=== PATIENT | male | born 1945 | race Caucasian/White ===

== ENCOUNTER 2018-11-03 13:33 | Inpatient (IN) | payer MEDICARE, OTHER ==
[~2018-11-03] VITALS: Ht 190.5 cm; Wt 103.8 kg
[~2018-11-03 13:33] MED LIST: ALLOPURINOL300 MG PO; AMBIEN10 MG PO; AMBIEN5 MG PO; ASPIRIN 32325 MG/TAB PO; ATOXIMETIN-B1 CAP PO; Beta Carotene; CO ENZYME Q-1050 MG PO; COREG 6.256.25 MG/TA PO; Echinacea; FISH OIL1 IU PO; FLOMAX 0.40.4 MG/CAP PO; Ginko Biloba; Glucosamine; HCTZ PO; HYZAAR 50-12.1 UDTAB PO; LORTAB 7.5/5001 TAB PO; LOVASTATIN10 MG PO; METOPROLOL1 MG/ML PO; MEVACOR40 MG PO; MSM; NAPROSYN 2250 MG/TAB PO; NAPROXEN250 MG PO; NORTRIPTYLINE10 MG PO; PERCOCET 325 MG1 TA4 PO; POTASSIUM GLUCO; ST JOHN S WORT; Saw Palmetto; VERAPAMIL PO; Vitamin C; ZOFRAN 4MG T4 MG/TAB PO; ZOFRAN4 MG PO
[2018-11-03 14:39] LABS: BASO % 0.3 % (0.0-2.0); EOS # 0.1 (0.0-0.7); EOS % 1.9 % (0-4.0); GRAN # 4.2 (1.4-6.5); GRAN % 60.8 % (42.2-75.2); HEMATOCRIT 38.6 % (42.0-52.0); HEMOGLOBIN 14.2 g/dl (13.5-18.0); LYMPH % 29.9 % (20.0-51.0); MEAN CELL VOLUME 89 fl (80.0-100.0); MEAN CORPUSCULAR HEMOGLOBIN 33 pg (27.0-31.0); MEAN CORPUSCULAR HGB CONC 37 g/dl (33.0-37.0); MEAN PLATELET VOLUME 8.9 fl (7.4-10.4); MONO # 0.5 (0.1-0.6); MONO % 6.7 % (1.7-9.3); PLATELET COUNT 216 K/mm3 (130-400); RED BLOOD COUNT 4.33 M/mm3 (4.20-5.60)
[2018-11-03 14:47] LABS: INR 1.2 (0.8-3.0); PROTHROMBIN TIME 13.1 SECONDS (9.7-12.8)
[2018-11-03 14:49] LABS: ALBUMIN 4.3 gm/dL (3.5-5.0); BILIRUBIN,TOTAL 1.1 mg/dL (0.0-1.0); CALCIUM 9.2 mg/dL (8.4-10.2); CREATININE, serum 1.37 mg/dL (0.66-1.25); POTASSIUM 4.1 mmol/L (3.4-5.0); TOTAL PROTEIN 7.2 gm/dL (6.4-8.2)
[2018-11-03] MEDS ORDERED: NORCO 325 MG-51 TAB PO (17:22)
[2018-11-03] MEDS ORDERED: FLOMAX 0.40.4 MG/CAP PO (17:22)
[2018-11-03] MEDS ORDERED: COZAAR 25MG25 MG/TAB PO (17:23)
[2018-11-03] MEDS ORDERED: PROPECIA1 MG PO (17:23)
[2018-11-03] MEDS ORDERED: ZYLOPRIM 100MG100 MG PO (17:23)
[2018-11-03] MEDS ORDERED: MEVACOR10 MG PO (17:24)
[2018-11-03] MEDS ORDERED: COREG 3.123.125 MG/T PO (17:24)
[2018-11-03] MEDS ORDERED: NEURONTIN400 MG/CAP PO (17:24)
[2018-11-03] MEDS ORDERED: AMITIZA 8MCG8 MCG PO (17:25)
[2018-11-03 19:39] VITALS: BP 151/75; PULSE 79; TEMP 98.3
[2018-11-03 19:40] VITALS: BP 151/75; PULSE 79; TEMP 98.3
[2018-11-04] VITALS (14 sets, daily range): BP systolic 123–169; BP diastolic 58–86; PULSE 78–95; TEMP 97.2–100.1
[2018-11-04 09:03] LABS: BASO % 0.4 % (0.0-2.0); EOS # 0.2 (0.0-0.7); EOS % 1.6 % (0-4.0); GRAN # 7.9 (1.4-6.5); GRAN % 75.8 % (42.2-75.2); HEMATOCRIT 38.4 % (42.0-52.0); HEMOGLOBIN 13.9 g/dl (13.5-18.0); LYMPH # 1.3 (1.2-3.4); LYMPH % 12.8 % (20.0-51.0); MEAN CELL VOLUME 89 fl (80.0-100.0); MEAN CORPUSCULAR HEMOGLOBIN 32 pg (27.0-31.0); MEAN CORPUSCULAR HGB CONC 36 g/dl (33.0-37.0); MEAN PLATELET VOLUME 8.9 fl (7.4-10.4); MONO % 9.1 % (1.7-9.3); PLATELET COUNT 188 K/mm3 (130-400); REDCELL DISTRIBUTION WIDTH-CV 13.1 % (11.5-14.5)
[2018-11-04 09:16] LABS: ALBUMIN 4.1 gm/dL (3.5-5.0); BILIRUBIN,TOTAL 1.7 mg/dL (0.0-1.0); CALCIUM 8.8 mg/dL (8.4-10.2); CREATININE, serum 1.11 mg/dL (0.66-1.25); POTASSIUM 3.9 mmol/L (3.4-5.0); TOTAL PROTEIN 7.1 gm/dL (6.4-8.2)
[2018-11-04] MEDS ORDERED: HYZAAR 50-12.1 UDTAB PO (12:08)
[2018-11-05 00:14] VITALS: BP 140/72; PULSE 76; TEMP 98.1
[2018-11-05 03:38] VITALS: BP 153/81; PULSE 77; TEMP 98
[2018-11-05 08:01] VITALS: BP 146/76; PULSE 75; TEMP 97.5
[2018-11-05 08:51] LABS: BASO % 0.1 % (0.0-2.0); GRAN # 10.7 (1.4-6.5); GRAN % 86.7 % (42.2-75.2); HEMOGLOBIN 12.8 g/dl (13.5-18.0); LYMPH # 0.9 (1.2-3.4); LYMPH % 7.6 % (20.0-51.0); MEAN CELL VOLUME 90 fl (80.0-100.0); MEAN CORPUSCULAR HEMOGLOBIN 33 pg (27.0-31.0); MEAN CORPUSCULAR HGB CONC 36 g/dl (33.0-37.0); MEAN PLATELET VOLUME 9.2 fl (7.4-10.4); MONO # 0.6 (0.1-0.6); MONO % 5.1 % (1.7-9.3); PLATELET COUNT 192 K/mm3 (130-400); RED BLOOD COUNT 3.94 M/mm3 (4.20-5.60); REDCELL DISTRIBUTION WIDTH-CV 12.8 % (11.5-14.5)
[2018-11-05 08:59] LABS: HEMATOCRIT 35.3 % (42.0-52.0)
[2018-11-05 09:01] LABS: ALBUMIN 3.6 gm/dL (3.5-5.0); BILIRUBIN,TOTAL 0.8 mg/dL (0.0-1.0); CALCIUM 8.4 mg/dL (8.4-10.2); CREATININE, serum 1.05 mg/dL (0.66-1.25); POTASSIUM 3.8 mmol/L (3.4-5.0); TOTAL PROTEIN 6.4 gm/dL (6.4-8.2)
[2018-11-05 11:22] VITALS: BP 120/89; PULSE 74; TEMP 98.2
[2018-11-05 16:43] VITALS: BP 131/65; PULSE 78; TEMP 98.2
[2018-11-05 19:30] VITALS: BP 134/67; PULSE 76; TEMP 99
[2018-11-06 03:47] VITALS: BP 147/80; PULSE 76; TEMP 97.9
[2018-11-06 08:46] VITALS: BP 147/71; PULSE 75; TEMP 98.7
[2018-11-06] MEDS ORDERED: ASPI325T6 PO (08:48)
[2018-11-06 08:55] LABS: BASO % 0.2 % (0.0-2.0); EOS # 0.1 (0.0-0.7); EOS % 0.9 % (0-4.0); GRAN # 7.8 (1.4-6.5); GRAN % 72.5 % (42.2-75.2); HEMOGLOBIN 12.4 g/dl (13.5-18.0); LYMPH # 1.9 (1.2-3.4); LYMPH % 17.3 % (20.0-51.0); MEAN CELL VOLUME 90 fl (80.0-100.0); MEAN CORPUSCULAR HEMOGLOBIN 33 pg (27.0-31.0); MEAN CORPUSCULAR HGB CONC 36 g/dl (33.0-37.0); MEAN PLATELET VOLUME 9.2 fl (7.4-10.4); MONO # 0.9 (0.1-0.6); MONO % 8.7 % (1.7-9.3); PLATELET COUNT 186 K/mm3 (130-400); RED BLOOD COUNT 3.78 M/mm3 (4.20-5.60); REDCELL DISTRIBUTION WIDTH-CV 12.9 % (11.5-14.5)
[2018-11-06 08:56] LABS: HEMATOCRIT 34.1 % (42.0-52.0)
[2018-11-06 09:04] LABS: CALCIUM 8.5 mg/dL (8.4-10.2); CREATININE, serum 1.01 mg/dL (0.66-1.25); POTASSIUM 3.8 mmol/L (3.4-5.0)
[2018-11-06 11:19] VITALS: BP 147/71; PULSE 75; TEMP 98.7
[2018-11-06] MEDS ORDERED: NORCO 325 MG-51 TAB PO (11:51)
== END 2018-11-06 12:10 | DRG 470 ==
LOC: COL.ER 13:33 → SURG 17:07 → MEDICAL 17:07 → SURG 11-04 14:53
PROVIDERS: Hospitalist; Orthopaedic Surgery; Physician Assistant; Student in an Organized Health Care Education/Training Program
PROC: 0SRR0J9 Replacement of Right Hip Joint, Femoral Surface with Synthetic Substitute, Cemented, Open Approach (ICD-10-PCS; principal; 2018-11-04 14:30)
DX: S72.041A Displaced fracture of base of neck of right femur, initial encounter for closed fracture (principal); N17.9 Acute kidney failure, unspecified; I10 Essential (primary) hypertension; E78.5 Hyperlipidemia, unspecified; G62.9 Polyneuropathy, unspecified; V19.3XXA Pedal cyclist (driver) (passenger) injured in unspecified nontraffic accident, initial encounter; N40.0 Benign prostatic hyperplasia without lower urinary tract symptoms
CPT/HCPCS: 99223-AI; 99232-AI; 99233-AI; 99239; A4314; A9284; C1776; J0690; J1100; J2250; J2270; J2405; J2704; J2795; J3010; J7030

== ENCOUNTER 2019-09-19 07:56 | Emergency (ER) | payer MEDICARE, OTHER ==
[~2019-09-19] VITALS: Ht 190.5 cm; Wt 100.0 kg
[~2019-09-19 07:56] MED LIST changes: +AMITIZA 8MCG8 MCG PO; +ASPI325T6 PO; +COREG 3.123.125 MG/T PO; +COZAAR 25MG25 MG/TAB PO; +MEVACOR10 MG PO; +NEURONTIN400 MG/CAP PO; +NORCO 325 MG-51 TAB PO; +PROPECIA1 MG PO; +ZYLOPRIM 100MG100 MG PO
[2019-09-19 07:57] VITALS: TEMP 97.8
[2019-09-19] MEDS ORDERED: COREG12.5 MG PO (08:06)
[2019-09-19] MEDS ORDERED: HYZAAR 25 MG-101 TAB PO (08:07)
[2019-09-19] MEDS ORDERED: AMITIZA24 MCG PO (08:12)
[2019-09-19] MEDS ORDERED: AMITIZA 8MCG8 MCG PO (08:12)
[2019-09-19 08:52] LABS: BASO % 0.3 % (0.0-2.0); EOS # 0.1 (0.0-0.7); GRAN # 4.1 (1.4-6.5); GRAN % 63.4 % (42.2-75.2); HEMOGLOBIN 13.3 g/dl (13.5-18.0); LYMPH # 1.7 (1.2-3.4); LYMPH % 26.6 % (20.0-51.0); MEAN CELL VOLUME 90 fl (80.0-100.0); MEAN CORPUSCULAR HEMOGLOBIN 33 pg (27.0-31.0); MEAN CORPUSCULAR HGB CONC 36 g/dl (33.0-37.0); MEAN PLATELET VOLUME 9.3 fl (7.4-10.4); MONO # 0.5 (0.1-0.6); MONO % 7.2 % (1.7-9.3); PLATELET COUNT 211 K/mm3 (130-400); RED BLOOD COUNT 4.08 M/mm3 (4.20-5.60); REDCELL DISTRIBUTION WIDTH-CV 13.2 % (11.5-14.5)
[2019-09-19 08:57] LABS: HEMATOCRIT 36.7 % (42.0-52.0)
[2019-09-19 09:17] LABS: ALANINE AMINOTRANSFERASE 17 U/L (21-72); ALBUMIN 4.3 gm/dL (3.5-5.0); ALKALINE PHOSPHATASE 28 U/L (50-136); ANION GAP 9 mmol/L (7-16); AST,SGOT 22 U/L (15-37); BILIRUBIN,TOTAL 0.7 mg/dL (0.0-1.0); BLOOD UREA NITROGEN 23 mg/dL (9-20); CARBON DIOXIDE 26 mmol/L (22-30); CHLORIDE 104 mmol/L (98-107); CREATININE, serum 1.28 (0.66-1.25); GLUCOSE 118 mg/dL (74-106); SODIUM 139 mmol/L (137-145)
[2019-09-19 09:32] LABS: TROPONIN-I < 0.012 ng/mL (0.000-0.035)
[2019-09-19 10:02] VITALS: BP 102/61; PULSE 64
--- NOTE | 2019-09-19 11:42 | NUR ---
electroplating worker met with patient and provided a taxi voucher so that patient can be taken to his car at [facility]. Patient was unable to find a friend to come and get him and he didn't have any romero.
== END 2019-09-19 10:02 | disposition home or self-care (01) ==
LOC: COL.ER 07:56
PROVIDERS: Emergency Medicine
DX: R55 Syncope and collapse (principal)

== ENCOUNTER 2019-10-10 06:29 | Day surgery (SDC) | payer MEDICARE, OTHER ==
[~2019-10-10] VITALS: Ht 190.5 cm; Wt 98.6 kg
[~2019-10-10 06:29] MED LIST changes: +AMITIZA24 MCG PO; +COREG12.5 MG PO; +HYZAAR 25 MG-101 TAB PO; -MEVACOR10 MG PO; +NEURONTIN300 MG/CAP PO; -NEURONTIN400 MG/CAP PO; -PROPECIA1 MG PO; +PROSCAR 5MG5 MG PO; -ZYLOPRIM 100MG100 MG PO; +ZYLOPRIM 300MG300 MG PO
[2019-10-10] MEDS ORDERED: NORCO 325 MG-51 TAB PO (08:52)
[2019-10-10] MEDS ORDERED: FOSAMAX 70MG TA70 MG PO (08:57)
[2019-10-10 09:24] VITALS: BP 145/79; PULSE 76; TEMP 97.9
[2019-10-10 15:24] VITALS: TEMP 97.2
[2019-10-10 15:35] VITALS: BP 163/83; PULSE 64
--- NOTE | 2019-10-10 15:35 | NUR ---
TO RM 1 PER CART FROM PACU. ALERT ORIENTED X3, TALKING TO STAFF AND SISTER. DRESSING CLEAN DRY INTACT ON LEFT CALF AND INNER GROIN. DENIES PAIN C/O "SLIGHT" NAUSEA.
[2019-10-10 15:45] VITALS: BP 162/50; PULSE 62
[2019-10-10 16:00] VITALS: BP 171/86; PULSE 61
--- NOTE | 2019-10-10 16:00 | NUR ---
RECEIVED 2ND SPRITE AND PEARL CRACKERS.
--- NOTE | 2019-10-10 16:15 | NUR ---
AMBULATED TO BATHROOM VOIDED AND TOLERATED WELL AND AMBULATED BACK TO RM
--- NOTE | 2019-10-10 16:30 | NUR ---
RECEIVED DISCHARGE INSTRUCTIONS AND VERBALIZED UNDERSTANDING DISCONTINUED IV AND INT-CATHETER INTACT
--- NOTE | 2019-10-10 16:45 | NUR ---
DISCHARGED PER WC BY NURSING STAFF TO PRIVATE CAR IN CARE OF SISTER.
== END 2019-10-10 17:00 | disposition home or self-care (01) ==
LOC: SDCO 06:29
DX: C43.72 Malignant melanoma of left lower limb, including hip (principal); I10 Essential (primary) hypertension; E78.5 Hyperlipidemia, unspecified; G62.9 Polyneuropathy, unspecified; N40.0 Benign prostatic hyperplasia without lower urinary tract symptoms; M10.9 Gout, unspecified; I47.1 Supraventricular tachycardia; K55.9 Vascular disorder of intestine, unspecified; G89.29 Other chronic pain; K21.9 Gastro-esophageal reflux disease without esophagitis; Z79.899 Other long term (current) drug therapy; F41.9 Anxiety disorder, unspecified; F32.9 Major depressive disorder, single episode, unspecified; Z90.49 Acquired absence of other specified parts of digestive tract; Z88.8 Allergy status to other drugs, medicaments and biological substances
CPT/HCPCS: A9541; J0330; J0690; J1100; J1885; J2405; J2704; J3010; J7120

== ENCOUNTER → 2020-03-13 | Outpatient (CLI) | payer MEDICARE, OTHER ==
[~2020-03-13] MED LIST changes: +FOSAMAX 70MG TA70 MG PO
== END ==
LOC: ZCOL.LAB 16:06
DX: Z98.890 Other specified postprocedural states (principal)

== ENCOUNTER 2020-06-21 15:41 | Inpatient (IN) | payer MEDICARE, OTHER ==
[~2020-06-21] VITALS: Ht 190.5 cm; Wt 100.5 kg
[~2020-06-21 15:41] MED LIST changes: +COREG12.5 MG; -COREG12.5 MG PO
[2020-06-21 16:47] LABS: BASO % 0.3 % (0.0-2.0); EOS % 0.1 % (0-4.0); GRAN # 7.1 (1.4-6.5); HEMATOCRIT 38.9 % (42.0-52.0); HEMOGLOBIN 14.1 g/dl (13.5-18.0); LYMPH # 1.7 (1.2-3.4); LYMPH % 17.7 % (20.0-51.0); MEAN CELL VOLUME 88 fl (80.0-100.0); MEAN CORPUSCULAR HEMOGLOBIN 32 pg (27.0-31.0); MEAN CORPUSCULAR HGB CONC 36 g/dl (33.0-37.0); MONO # 0.7 (0.1-0.6); MONO % 7.5 % (1.7-9.3); PLATELET COUNT 211 K/mm3 (130-400); RED BLOOD COUNT 4.44 M/mm3 (4.20-5.60); REDCELL DISTRIBUTION WIDTH-CV 13.7 % (11.5-14.5)
[2020-06-21 17:00] LABS: ALANINE AMINOTRANSFERASE 32 U/L (4-49); ALBUMIN 4.6 gm/dL (3.5-5.0); ALKALINE PHOSPHATASE 35 U/L (50-136); ANION GAP 10 mmol/L (7-16); AST,SGOT 101 U/L (15-37); BILIRUBIN,TOTAL 1.4 mg/dL (0.0-1.0); BLOOD UREA NITROGEN 29 mg/dL (9-20); CALCIUM 8.9 mg/dL (8.4-10.2); CARBON DIOXIDE 26 mmol/L (22-30); CHLORIDE 103 mmol/L (98-107); CREATININE, serum 1.18 (0.66-1.25); GLUCOSE 100 mg/dL (74-106); POTASSIUM 3.4 mmol/L (3.4-5.0); SODIUM 138 mmol/L (137-145); TOTAL PROTEIN 7.7 gm/dL (6.4-8.2)
[2020-06-21 17:05] LABS: C-REACTIVE PROTEIN < 0.5 mg/dL (0.0-0.9)
[2020-06-21 17:11] LABS: TROPONIN-I 0.092 ng/mL (0.000-0.035)
[2020-06-21 18:27] LABS: MAGNESIUM 1.7 mg/dL (1.6-2.3); PHOSPHOROUS 3.3 mg/dL (2.5-4.5)
[2020-06-21] MEDS ORDERED: COZAAR100 MG PO (20:37)
[2020-06-21] MEDS ORDERED: FLOMAX 0.40.4 MG/CAP PO (20:37)
[2020-06-21] MEDS ORDERED: THE MEDICINE S200 M2 PO (20:38)
[2020-06-21] MEDS ORDERED: MELATIN 3 MG-11 TAB PO (20:38)
[2020-06-21 20:45] VITALS: BP 166/77; PULSE 73; TEMP 99
--- NOTE | 2020-06-21 20:46 | NUR ---
Pt arrived to room. Vitals obtained. Pt oriented to room and call light. Denies needs. Call light within reach. Will continue to monitor.
[2020-06-21 21:05] LABS: CLOSTRIDIUM DIFF A/B NEG; CLOSTRIDIUM DIFF A/B INTERP NonToxigenic C.diff
[2020-06-21 22:03] LABS: COLLECTION METHOD CLEAN CATCH
[2020-06-21 22:10] LABS: TROPONIN-I 3 HR POST INITIAL 0.076 ng/mL (0.000-0.034)
[2020-06-21 22:12] LABS: MUCOUS Present /lpf; PH 6 (5-8); SQUAMOUS EPITHELIAL None Seen /hpf; URINE APPEARANCE Clear; URINE BACTERIA None Seen /hpf; URINE BILIRUBIN Negative (NEGATIVE); URINE BLOOD 1+ (NEGATIVE); URINE COLOR Yellow; URINE GLUCOSE Negative (NEGATIVE); URINE KETONE Negative (NEGATIVE); URINE LEUKOCYTE ESTERASE Negative (NEGATIVE); URINE NITRATE Negative (NEGATIVE); URINE PROTEIN(semi-quant) 1+ (NEGATIVE)
[2020-06-21 22:21] LABS: THYROID STIMULATING HORMONE 1.08 uIU/mL (0.465-4.680)
--- NOTE | 2020-06-21 22:46 | NUR ---
Pt voided 125ml at 2200. Bladder scan at this time showing 291ml. Pt states he does not feel like he has to void at this time
[2020-06-21 22:48] VITALS: BP 162/63; PULSE 62; TEMP 98.4
--- NOTE | 2020-06-21 23:54 | NUR ---
Admission form B completed at this time. Pt resting in bed. Pt alert and oriented x4. Denies pain. IVF infusing per orders to left forearm IV site. Med rec reviewed with pt. Pt was able to verify all medications except coreg and cozaar stating he was not sure what doses he takes at home. States he thinks he takes 12.5mg of coreg and not 25mg and does not want to take a higher dose than 12.5mg until he is able to verify with PCP in AM. States he does not know the dose of cozaar and would also like to verify that with PCP in am. Pt denies any other needs. Call light within reach. Will continue to monitor.
[2020-06-22] VITALS (7 sets, daily range): BP systolic 118–186; BP diastolic 59–88; PULSE 65–83; TEMP 97.2–98.4
--- NOTE | 2020-06-22 02:58 | NUR ---
PATIENT IS REFUSING TO HAVE ABG DONE. EXPLAINED IMPORTANCE OF TEST TO HELP PATIENT UNDERSTAND, HOWEVER HE IS STILL REFUSING AND WILL NOT ALLOW ME TO EVEN LOOK AT HIS ARM. RN TRIED TO EXPLAIN AND THAT DID NOT WORK EITHER. SPO2 WAS 96 ON ROOM AIR. WILL CONINUE TO MONITOR. HECTOR OSORIO WAS NOTIFIED.
--- NOTE | 2020-06-22 07:00 | NUR ---
Pt rested well in bed overnight. Pt had brief episode of confusion last night around 213 which he was only able to state his name and and was refusing cares. Pt remained confused until about 320. At 320, pt was A&Ox4. HECTOR Bermudez, notifed during this time and entered in orders for MRI. At this time, pt is alert and oriented x4. Pt stating he is "discouraged" because he does not know what is going on with him. IVF infusing per orders to left forearm IV site. Pt denied pain overnight. Assisted to bathroom a few times overnight to urinate. No bowel movement since admit to floor. Pt denies any other needs at this time. Call light within reach. Bed alarm on. Report given to JAMAL Wetzel
[2020-06-22 07:22] LABS: BASO % 0.2 % (0.0-2.0); EOS # 0.1 (0.0-0.7); EOS % 1.1 % (0-4.0); GRAN # 5.9 (1.4-6.5); GRAN % 71.8 % (42.2-75.2); HEMATOCRIT 37.4 % (42.0-52.0); HEMOGLOBIN 13.4 g/dl (13.5-18.0); LYMPH # 1.7 (1.2-3.4); LYMPH % 20.4 % (20.0-51.0); MEAN CELL VOLUME 88 fl (80.0-100.0); MEAN CORPUSCULAR HEMOGLOBIN 32 pg (27.0-31.0); MEAN CORPUSCULAR HGB CONC 36 g/dl (33.0-37.0); MEAN PLATELET VOLUME 9.1 fl (7.4-10.4); MONO # 0.5 (0.1-0.6); MONO % 6.1 % (1.7-9.3); PLATELET COUNT 182 K/mm3 (130-400); RED BLOOD COUNT 4.26 M/mm3 (4.20-5.60); REDCELL DISTRIBUTION WIDTH-CV 13.7 % (11.5-14.5)
[2020-06-22 08:00] LABS: ALBUMIN 3.8 gm/dL (3.5-5.0); BILIRUBIN,TOTAL 1.6 mg/dL (0.0-1.0); CALCIUM 8.1 mg/dL (8.4-10.2); CREATININE, serum 0.94 (0.66-1.25); POTASSIUM 3.3 mmol/L (3.4-5.0); TOTAL PROTEIN 6.6 gm/dL (6.4-8.2)
[2020-06-22 08:14] LABS: TROPONIN-I 0.054 ng/mL (0.000-0.035)
--- NOTE | 2020-06-22 09:58 | NUR ---
Pt napping upon entry this morning, easily awakened, no C/O pain at this time, Pt currently oriented X4, shift assessments complete, left Pt call light in reach, bed in lowest position.
--- NOTE | 2020-06-22 10:25 | NUR ---
Pressure Welder met with the patient to complete initial intake. The patient lives alone in [facility]. The patient denies DME use and is independent with ADLs. The patient's PCP is Dr. Diaz and the patient receives medications from [facility] with no difficulties. The patient has advanced directives in the EMR and designate his sister, Rachna ([phone]), who lives in [place]. The patient plans to return home at discharge. The patient's sister will visit the patient for a few days once he discharges. If patient discharges this day, his friend Ravinder will provide transportation. SW contacted the patient's sister/DPOA-HC to review discharge plans. She will visit the patient for a few days once he discharges. There are no additional needs at this time.
--- NOTE | 2020-06-22 18:32 | NUR ---
Arreaga catheter and rectal tube removed from Pt, Pt tolerated procedures well, pericare provided. Pt resting in the room, no C/O pain throughout the day, VS hqve remained stable.
--- NOTE | 2020-06-22 18:42 | NUR ---
Pt resting in the room, has been sleeping on and off during the day, Pt has remained oriented X4 today, he has not had C/O pain during the shift, Pt reported 1 bout of diarrhea early this afternoon, VS remain stable.
--- NOTE | 2020-06-22 20:30 | NUR ---
Pt assessment completed and documented. Pt resting in bed at this time. Pt alert and oriented x4. Denies pain. IVF infusing per orders to left forearm IV site. Telemetry on. VSS. Pt denies any other needs at this time. Call light within reach. Will continue to monitor.
[2020-06-23 04:32] VITALS: BP 163/66; PULSE 70; TEMP 98.2
[2020-06-23 04:48] VITALS: BP 168/87
--- NOTE | 2020-06-23 07:16 | NUR ---
Pt had uneventful night. States he feels as if he was able to get some good sleep last night. Denied pain. IVF infusing per orders to left forearm IV site. Pt denies any other needs at this time. Call light within reach. Report given to JAMAL Wetzel
--- NOTE | 2020-06-23 09:00 | NUR ---
Pt awake and alert upon entry this morning, no C/O pain currently, talkative and appropriate, shift assessments complete, left Pt call light in reach, bed in lowest position.
[2020-06-23 09:10] VITALS: BP 148/59; PULSE 78; TEMP 97.9
[2020-06-23 13:14] VITALS: BP 153/82; PULSE 73; TEMP 98.7
[2020-06-23 14:51] LABS: COLLECTION METHOD CLEAN CATCH
[2020-06-23 15:10] LABS: MUCOUS Present /lpf; PH 6 (5-8); SQUAMOUS EPITHELIAL None Seen /hpf; URINE APPEARANCE Clear; URINE BACTERIA None Seen /hpf; URINE BILIRUBIN Negative (NEGATIVE); URINE BLOOD 1+ (NEGATIVE); URINE COLOR Yellow; URINE GLUCOSE Negative (NEGATIVE); URINE KETONE Negative (NEGATIVE); URINE LEUKOCYTE ESTERASE Negative (NEGATIVE); URINE NITRATE Negative (NEGATIVE); URINE PROTEIN(semi-quant) Negative (NEGATIVE); URINE RBC 0-2 /hpf; URINE UROBILINOGEN Negative (NEGATIVE)
[2020-06-23 17:33] VITALS: BP 141/59; PULSE 78; TEMP 97.8
--- NOTE | 2020-06-23 19:13 | NUR ---
Pt resting in the room today, provided shower this morning, Pt oriented during neuro checks, no complaints of pain during the day. VS have remained stable.
[2020-06-23 20:18] VITALS: BP 153/60; PULSE 75; TEMP 98.1
--- NOTE | 2020-06-23 20:55 | NUR ---
Pt assessment completed and documented. PT alert and oriented x4. Denies pain. States he feels as if he is feeling better. IVF infusing per orders to left forearm IV site without complications. Pt denies any other needs at this time. Call light within reach. Will continue to monitor
[2020-06-24] VITALS (7 sets, daily range): BP systolic 145–181; BP diastolic 76–89; PULSE 70–89; TEMP 97.4–98.4
--- NOTE | 2020-06-24 00:52 | NUR ---
BP 181/89. PRN hydralazine given per orders. IV to left forearm infiltrated with normal saline that is infusing per orders. Pt continuously up in room walking around and does not take IV pole with him when walking. IV to left forearm removed and new IV inserted to right forearm. Pt denies any other needs. Call light within reach.
--- NOTE | 2020-06-24 06:05 | NUR ---
Pt states he was able to get some sleep overnight. Pt alert and oriented x4. PRN hydralazine given x1 per orders for elevated bp. Denied pain throughout the night. IVF infusing per orders to right forearm IV. States he has had a few episodes of diarrhea. Pt denies any other needs. Call light within reach.
--- NOTE | 2020-06-24 08:30 | NUR ---
Pt awake and alert this morning, no C/O pain shift assessments complete, left Pt call light in reach, bed in lowest position.
[2020-06-24 08:32] LABS: BASO % 0.3 % (0.0-2.0); EOS # 0.1 (0.0-0.7); GRAN # 6.3 (1.4-6.5); GRAN % 71.5 % (42.2-75.2); HEMATOCRIT 40.2 % (42.0-52.0); HEMOGLOBIN 14.7 g/dl (13.5-18.0); LYMPH # 1.8 (1.2-3.4); LYMPH % 19.8 % (20.0-51.0); MEAN CELL VOLUME 88 fl (80.0-100.0); MEAN CORPUSCULAR HEMOGLOBIN 32 pg (27.0-31.0); MEAN CORPUSCULAR HGB CONC 37 g/dl (33.0-37.0); MEAN PLATELET VOLUME 10.8 fl (7.4-10.4); MONO # 0.6 (0.1-0.6); MONO % 7.1 % (1.7-9.3); PLATELET COUNT 112 K/mm3 (130-400); RED BLOOD COUNT 4.55 M/mm3 (4.20-5.60)
[2020-06-24 09:59] LABS: ALBUMIN 4.2 gm/dL (3.5-5.0); BILIRUBIN,TOTAL 1.5 mg/dL (0.0-1.0); CREATININE, serum 0.93 (0.66-1.25); MAGNESIUM 1.7 mg/dL (1.6-2.3); POTASSIUM 4.3 mmol/L (3.4-5.0); TOTAL PROTEIN 7.1 gm/dL (6.4-8.2)
--- NOTE | 2020-06-24 18:56 | NUR ---
Pt resting in the room today, no C/O pain throughout the day, had 1 high BP that required apresoline, VS have remained stable.
--- NOTE | 2020-06-24 20:00 | NUR ---
Report received assumed care for rn shift mgr. Assessment complete. A&Ox3-drowsy. Has periods of confusion where he seems to have a hard time coming up with the words he is looking for to describe. Neuros are WNL. Denies pain/shortness of breath/nausea. +flatus. Several BMS today. Tolerating diet. INT to right FA flushes without difficulty. Voiding without difficulty. Denies needs. Call light in reach. Will monitor.
[2020-06-25 00:12] VITALS: BP 167/88; PULSE 70; TEMP 98.5
[2020-06-25 04:02] VITALS: BP 142/78; PULSE 76; TEMP 97.9
--- NOTE | 2020-06-25 06:16 | NUR ---
Rested off and on this shift. Reports frequent trips to bathroom to void-states it does burn a little bit when he urinates. Neuros have been WNL. Denies needs. Call light in reach. Will monitor.
[2020-06-25 06:52] LABS: BASO % 0.5 % (0.0-2.0); EOS # 0.1 (0.0-0.7); EOS % 1.4 % (0-4.0); GRAN # 6.1 (1.4-6.5); HEMATOCRIT 38.6 % (42.0-52.0); HEMOGLOBIN 13.6 g/dl (13.5-18.0); LYMPH # 1.6 (1.2-3.4); LYMPH % 18.6 % (20.0-51.0); MEAN CELL VOLUME 90 fl (80.0-100.0); MEAN CORPUSCULAR HEMOGLOBIN 32 pg (27.0-31.0); MEAN CORPUSCULAR HGB CONC 35 g/dl (33.0-37.0); MONO # 0.6 (0.1-0.6); MONO % 7.1 % (1.7-9.3); PLATELET COUNT 206 K/mm3 (130-400); REDCELL DISTRIBUTION WIDTH-CV 13.7 % (11.5-14.5)
[2020-06-25 07:09] LABS: CALCIUM 9.2 mg/dL (8.4-10.2); CREATININE, serum 0.99 (0.66-1.25); POTASSIUM 4.1 mmol/L (3.4-5.0)
--- NOTE | 2020-06-25 07:42 | NUR ---
PT REPORTS BURNING AND FREQUENCY WITH URINATION DESPITE NEGATIVE URINE SPECIMEN YESTERDAY
[2020-06-25 07:51] VITALS: BP 175/98; PULSE 74; TEMP 99
--- NOTE | 2020-06-25 08:40 | NUR ---
PT IN BED, COMPLAINING OF BURNING WHEN URINATING. PT ALSO STATES THAT HE IS STILL HAVING DIAHRREA. PT AOX4. PT EDUCATED ON CDIFF AND NEED FOR ISOLATION. PT CLAIMS HE WAS NOT AWARE OF INABILITY TO LEAVE THE ROOM AND WANDER THE HALLS. PT IV WAS LEAKING, NEW IV STARTED IN LFA. HYDRALAZINE GIVEN, BP RECHECKED AND IT WAS WITHIN NORMAL LIMITS. MEDICATIONS GIVEN, ASSESSMENT PERFORMED. DISCUSSED POC WITH FAMILY, LET PHYSICIAN KNOW ABOUT BURNING WITH URINATION AND FAMILY DESIRE TO TALK ABOUT POC WITH FAMILY. BED IN LOW POSITION, FRESH ICE WATER BROUGHT IN FOR PT. NO OTHER NEEDS AT THIS TIME.
[2020-06-25 09:38] VITALS: BP 146/66
[2020-06-25 12:13] VITALS: BP 152/90; PULSE 80; TEMP 99.1
[2020-06-25 12:19] LABS: COLLECTION METHOD CLEAN CATCH
[2020-06-25 12:32] LABS: MUCOUS Present /lpf; PH 5 (5-8); SQUAMOUS EPITHELIAL None Seen /hpf; URINE APPEARANCE Clear; URINE BACTERIA None Seen /hpf; URINE BILIRUBIN Negative (NEGATIVE); URINE BLOOD Negative (NEGATIVE); URINE COLOR Yellow; URINE GLUCOSE Negative (NEGATIVE); URINE KETONE Negative (NEGATIVE); URINE LEUKOCYTE ESTERASE Negative (NEGATIVE); URINE NITRATE Negative (NEGATIVE); URINE PROTEIN(semi-quant) Negative (NEGATIVE); URINE RBC 0-2 /hpf; URINE UROBILINOGEN Negative (NEGATIVE)
[2020-06-25] MEDS ORDERED: VANCOCIN H125 MG/CAP PO (14:18)
[2020-06-25] MEDS ORDERED: ASPIRIN E.C. 8181 MG PO (14:20)
[2020-06-25] MEDS ORDERED: K-DUR 10 MEQ T10 MEQ PO (14:22)
[2020-06-25] MEDS ORDERED: MAG-OX 400400 MG/TAB PO (14:22)
[2020-06-25] MEDS ORDERED: NORVASC 5MG5 MG/TAB PO (14:27)
--- NOTE | 2020-06-25 15:18 | NUR ---
DISCHARGE EDUCATION PROVIDED, IV DISCONTINUED, CALLED RIDE FOR PT, WILL BE HERE AROUND [id number]. NO OTHER NEEDS AT THIS TIME.
--- NOTE | 2020-06-25 15:35 | NUR ---
PT ESCORTED DOWN TO PT ADMISSIONS. NO OTHER NEEDS AT THIS TIME.
--- NOTE | 2020-06-25 16:41 | NUR ---
Allocation Analyst collaborated with CHINO Grissom who advised patient to discharge today and that she spoke with patient and patient's sister about Home Health. SW followed up with patient and patient's sister, Rachna about HH and they selected [facility]. ERENDIRA faxed HH referral to Cat at [facility] and Cat advised they are able to accept referral. ERENDIRA faxed discharge orders. ERENDIRA read IM form aloud to patient over the phone as patient is in contact isolation. Patient verbalized understanding and provided verbal consent as signature. ERENDIRA placed form in chart. ERENDIRA contacted MELBA GilbertCM at [facility] [place] to provide update. No additional needs at this time.
== END 2020-06-25 15:35 | disposition home or self-care (01) | DRG 372 ==
LOC: COL.ER 15:41 → PEDS 18:20 → MEDICAL 21:20
PROVIDERS: Emergency Medicine; Nurse Practitioner Family; Physician Assistant; ADMIT Internal Medicine
DX: A04.72 Enterocolitis due to Clostridium difficile, not specified as recurrent (principal); G93.40 Encephalopathy, unspecified; N40.0 Benign prostatic hyperplasia without lower urinary tract symptoms; G62.9 Polyneuropathy, unspecified; I48.0 Paroxysmal atrial fibrillation; E78.5 Hyperlipidemia, unspecified; E87.6 Hypokalemia; E86.0 Dehydration; R79.89 Other specified abnormal findings of blood chemistry; R30.0 Dysuria; Z20.828 Contact with and (suspected) exposure to other viral communicable diseases; Z85.820 Personal history of malignant melanoma of skin
CPT/HCPCS: 99223-AI; 99232-AI; 99233-AI; A9585; J0360; J1650; J7030

== ENCOUNTER → 2021-03-04 | Outpatient (CLI) | payer MEDICARE, OTHER ==
[~2021-03-04] VITALS: Ht 190.5 cm; Wt 95.0 kg
[~2021-03-04] MED LIST changes: +ASPIRIN E.C. 8181 MG PO; -COREG12.5 MG; +COREG12.5 MG PO; +COZAAR100 MG PO; +HYGROTON 2525 MG/TAB PO; +K-DUR 10 MEQ T10 MEQ PO; +MAG-OX 400400 MG/TAB PO; +MELATIN 3 MG-11 TAB PO; +MELATONIN5 M1 SL; +NORVASC 5MG5 MG/TAB PO; +THE MEDICINE S200 M2 PO; +VANCOCIN H125 MG/CAP PO
[2021-03-04 09:46] VITALS: BP 127/76; PULSE 79
[2021-03-04 10:40] VITALS: BP 151/87; PULSE 79
== END ==
LOC: COL.RAD 09:25
DX: C43.72 Malignant melanoma of left lower limb, including hip (principal)